=== PATIENT | female | born 1990 | race Caucasian/White ===

== ENCOUNTER 2022-10-16 21:37 | Emergency (ER) | payer SELFPAY ==
[2022-10-16 22:41] VITALS: BP 126/89
[2022-10-16 22:45] VITALS: BP 133/86
[2022-10-16 23:00] VITALS: BP 112/84
[2022-10-16 23:15] VITALS: BP 130/90
[2022-10-16] MEDS ORDERED: TRAMADOL HCL50 MG PO (23:25)
[2022-10-16] MEDS ORDERED: VOLTAREN75 MG PO (23:25)
[2022-10-16 23:30] VITALS: BP 115/90
[2022-10-16 23:46] VITALS: BP 115/80
== END 2022-10-16 23:47 | disposition home or self-care (01) | DRG 563 ==
LOC: ED 21:37
PROC: 2W3CX1Z Immobilization of Right Lower Arm using Splint (ICD-10-PCS; principal; 2022-10-16)
DX: S52.501A Unspecified fracture of the lower end of right radius, initial encounter for closed fracture (principal); W01.0XXA Fall on same level from slipping, tripping and stumbling without subsequent striking against object, initial encounter